=== PATIENT | female | born 1930 | race Caucasian/White ===

== ENCOUNTER 2017-04-25 23:40 | Emergency (ER) | payer OTHER ==
[2017-04-26 01:17] VITALS: BP 140/79; PULSE 79; TEMP 98.1; BMI 28.8
--- NOTE | 2017-04-26 01:31 | PDOC ---
History of Present Illness - General History Source: Patient Exam Limitations: No Limitations - History of Present Illness Initial Comments: 04/26/17 03:23 The patient is a 86-year-old female with a significant past medical history of non-repaired leaky valves, osteoporosis, and previous right lower arm fracture, and presents to the emergency department with left shoulder and upper arm pain since 8:30 pm. Patient reports she was sitting down on her recliner, supinated her left arm, and subsequently heard a cracking noise in the arm. She reports pain in her left arm, located mostly at the anterior mid-humeral region. She reports the pain is worsened with movement. She took two Tylenols at 9 pm. She denies any falls or acute trauma. The patient denies chest pain, shortness of breath, headache and dizziness. The patient denies fever, chills, nausea, vomit, diarrhea and constipation. The patient denies dysuria, frequency, urgency and hematuria. Allergies: NKDA Past Surgical History: hysterectomy, oophorectomy, L ear surgery Social History: Not toxic habits reported PCP: Dr. Hein <Miladys Carballo - Last Filed: 04/26/17 04:20> <Tonia Pan - Last Filed: 04/26/17 04:23> - General Chief Complaint: Pain, Acute Stated Complaint: PAIN Time Seen by Provider: 04/26/17 01:02 Past History <Miladys Carballo - Last Filed: 04/26/17 04:20> - Suicide/Smoking/Psychosocial Hx Smoking History: Never smoked Have you smoked in the past 12 months: No Information on smoking cessation initiated: No Hx Alcohol Use: No Drug/Substance Use Hx: No <Tonia Pan - Last Filed: 04/26/17 04:23> - Past Medical History Allergies/Adverse Reactions: Allergies Allergy/AdvReac Type Severity Reaction Status Date / Time No Known Allergies Allergy Verified 04/26/17 01:17 Home Medications: Ambulatory Orders Aspirin [ASA -] 81 mg PO DAILY 04/26/17 Buspirone HCl [Buspar -] 5 mg PO ONCE 04/26/17 Cetirizine HCl [Zyrtec -] 10 mg PO DAILY 04/26/17 Docusate Sodium [Colace] 100 mg PO DAILY 04/26/17 Furosemide 20 mg PO DAILY 04/26/17 Midodrine HCl 2.5 mg PO DAILY 04/26/17 Midodrine HCl 5 mg PO DAILY 04/26/17 Polyethylene Glycol 3350 [[id number]] 238 gm PO DAILY 04/26/17 Ranitidine HCl 150 mg PO DAILY 04/26/17 Review of Systems - Review of Systems Able to Perform ROS?: Yes Comments:: 04/26/17 03:23 GENERAL/CONSTITUTIONAL: No fever or chills. No weakness. HEAD, EYES, EARS, NOSE AND THROAT: No change in vision. No ear pain or discharge. No sore throat. CARDIOVASCULAR: No chest pain or shortness of breath. RESPIRATORY: No cough, wheezing, or hemoptysis. GASTROINTESTINAL: No nausea, vomiting, diarrhea or constipation. GENITOURINARY: No dysuria, frequency, or change in urination. MUSCULOSKELETAL: (+) Left upper arm pain. No joint or muscle swelling. No neck or back pain. SKIN: No rash NEUROLOGIC: No headache, vertigo, loss of consciousness, or change in strength/ sensation. ENDOCRINE: No increased thirst. No abnormal weight change. HEMATOLOGIC/LYMPHATIC: No anemia, easy bleeding, or history of blood clots. ALLERGIC/IMMUNOLOGIC: No hives or skin allergy. <Miladys Carballo - Last Filed: 04/26/17 04:20> *Physical Exam - Vital Signs Last Vital Signs Temp Pulse Resp BP Pulse Ox 98.1 F 79 16 140/79 97 04/26/17 01:13 04/26/17 01:13 04/26/17 01:13 04/26/17 01:13 04/26/17 01:13 - Physical Exam Comments: 04/26/17 03:23 GENERAL: Awake, alert, and fully oriented, in no acute distress. Afebrile. HEAD: No signs of trauma EYES: PERRLA, EOMI, sclera anicteric, conjunctiva clear ENT: Auricles normal inspection, hearing grossly normal, nares patent, oropharynx clear without exudates. Moist mucosa NECK: Normal ROM, supple, no lymphadenopathy, JVD, or masses LUNGS: Breath sounds equal, clear to auscultation bilaterally. No wheezes, and no crackles HEART: Regular rate and rhythm, normal S1 and S2, no murmurs, rubs or gallops ABDOMEN: Soft, nontender, normoactive bowel sounds. No guarding, no rebound. No masses EXTREMITIES: No clavicular ttp. (+) Minimal tenderness at humeral head. (+) Tenderness all along humerus. No trapezius ttp. No ttp at elbow. Able to supinate and pronate. Good pulses. No edema. No clubbing or cyanosis. No cords or erythema. NEUROLOGICAL: Cranial nerves II through XII grossly intact. Normal speech, normal gait SKIN: Warm, Dry, normal turgor, no rashes or lesions noted. <Miladys Carballo - Last Filed: 04/26/17 04:20> - Vital Signs Last Vital Signs Temp Pulse Resp BP Pulse Ox 98.1 F 79 16 140/79 97 04/26/17 01:13 04/26/17 01:13 04/26/17 01:13 04/26/17 01:13 04/26/17 01:13 <Tonia Pan - Last Filed: 04/26/17 04:23> ED Treatment Course - LABORATORY CBC & Chemistry Diagram: 04/26/17 03:00 04/26/17 03:00 - RADIOLOGY Radiograph Interpretation: 04/26/17 04:20 EXAM: XR LEFT HUMERUS and XR LEFT SHOULDER HISTORY: Pain COMPARISON: None. FINDINGS: X-ray left humerus: There is no fracture. X-ray left shoulder: No fracture or dislocation. Probable rotator cuff arthropathy is noted. There are degenerative changes of the a.c. joint. IMPRESSION: No fracture. Probable rotator cuff arthropathy. - Medications Given in the ED: ED Medications Discontinued Medications Generic Name Dose Route Start Last Admin Trade Name Freq PRN Reason Stop Dose Admin Ibuprofen 600 mg 04/26/17 01:35 04/26/17 02:01 Motrin - PO 04/26/17 01:36 600 mg ONCE ONE Administration Oxycodone/Acetaminophen 2 combo 04/26/17 01:35 04/26/17 02:02 Percocet 5/325 - PO 04/26/17 01:36 Not Given ONCE ONE Oxycodone/Acetaminophen 1 combo 04/26/17 01:59 04/26/17 02:02 Percocet 5/325 - PO 04/26/17 02:00 1 combo ONCE ONE Administration <Jeannie Carballonda - Last Filed: 04/26/17 04:20> - LABORATORY CBC & Chemistry Diagram: 04/26/17 03:00 04/26/17 03:00 <Tonia Pan - Last Filed: 04/26/17 04:23> Medical Decision Making - Medical Decision Making 04/26/17 04:22 Patient Name: ABDIRASHID SCHMIDT THIS IS A PRELIMINARY REPORT FROM [facility] DATE OF SERVICE: 2017-04-26 01:39:32 IMAGES: 3 EXAM: XR LEFT HUMERUS and XR LEFT SHOULDER HISTORY: Pain COMPARISON: None. FINDINGS: X-ray left humerus: There is no fracture. X-ray left shoulder: No fracture or dislocation. Probable rotator cuff arthropathy is noted. There are degenerative changes of the a.c. joint. IMPRESSION: No fracture. Probable rotator cuff arthropathy. <Tonia Pan - Last Filed: 04/26/17 04:23> *DC/Admit/Observation/Transfer - Attestations Scribe Attestion: 04/26/17 03:24 Documentation prepared by Miladys Carballo, acting as medical support specialist for Tonia Pan MD/. <Miladys Carballo - Last Filed: 04/26/17 04:20> - Discharge Dispostion Admit: No <Tonia Pan - Last Filed: 04/26/17 04:23> Diagnosis at time of Disposition: Strain of deltoid muscle - Discharge Dispostion Disposition: HOME Condition at time of disposition: Stable - Referrals Referrals: Aixa Hein MD [Primary Care Provider] - Max Chamberlain MD [Staff Physician] - - Patient Instructions Printed Discharge Instructions: DI for Muscle Strain - Post Discharge Activity
[2017-04-26] MEDS ORDERED: IBUPROFEN 600 MG TABLET (FP) PO ONE ×2 (01:35→01:55)
[2017-04-26 03:24] LABS: BASO % 0.7 % (0-2.0); EOS % 0.8 % (0-4.5); HEMATOCRIT 37.6 % (32.4-45.2); HEMOGLOBIN 12.8 GM/dL (10.7-15.3); LYMPH % 34.9 % (8-40); MCH 32.9 pg (25.7-33.7); MEAN CELL VOLUME 96.9 fl (80-96); MEAN PLT VOLUME 8.7 fl (7.5-11.1); MONO % 9.3 % (3.8-10.2); NEUT % 54.3 % (42.8-82.8); PLATELET COUNT 196 K/MM3 (134-434); RBC 3.89 M/mm3 (3.60-5.2); RDW 13.7 % (11.6-15.6)
[2017-04-26 03:42] LABS: ALBUMIN 3.6 g/dl (3.4-5.0); ANION GAP 9 (8-16); BILIRUBIN,TOTAL 0.3 mg/dL (0.2-1.0); BLOOD UREA NITROGEN 22 mg/dL (7-18); CALCIUM 9.2 mg/dL (8.5-10.1); CHLORIDE 101 mmol/L (98-107); CO2 28 mmol/L (21-32); CREATININE 0.7 mg/dL (0.55-1.02); GLUCOSE,RANDOM 114 mg/dL (74-106); SGOT/AST 16 U/L (15-37); SGPT/ALT 15 U/L (12-78); SODIUM 138 mmol/L (136-145); TOT PROT 6.7 g/dl (6.4-8.2)
[2017-04-26 03:45] LABS: ALK PHOS 61 U/L (45-117)
== END 2017-04-26 04:42 | disposition home or self-care (01) ==
LOC: SUPCPDRO 23:40 → JER 23:40
DX: S46.812A Strain of other muscles, fascia and tendons at shoulder and upper arm level, left arm, initial encounter (principal); X50.1XXA Overexertion from prolonged static or awkward postures, initial encounter; Y93.89 Activity, other specified; Y92.038 Other place in apartment as the place of occurrence of the external cause; M81.8 Other osteoporosis without current pathological fracture; I08.9 Rheumatic multiple valve disease, unspecified
CPT/HCPCS: 36415; 73030-TC-LT; 73060-TC-LT; 80053; 82550; 84484; 85025; 99282-25